=== PATIENT | female | born 1950 | race Caucasian/White ===

== ENCOUNTER 2022-07-26 17:46 | Inpatient (IN) | payer MEDICARE ==
[~2022-07-26] VITALS: Ht 157.5 cm; Wt 67.1 kg
--- NOTE | 2022-07-26 17:51 | NUR ---
at bedside for evaluation.
[2022-07-26] MEDS ORDERED: FENO54TA PO (18:11)
[2022-07-26] MEDS ORDERED: ATOR80TA PO (18:11)
[2022-07-26] MEDS ORDERED: ASPI81TA31 PO (18:11)
[2022-07-26] MEDS ORDERED: EMPA25TA PO (18:13)
[2022-07-26] MEDS ORDERED: MODA200T44 PO (18:13)
[2022-07-26] MEDS ORDERED: TRAZ-257 PO (18:13)
[2022-07-26] MEDS ORDERED: INSU100V7 SUBCUT (18:17)
[2022-07-26] MEDS ORDERED: ANAS1TAB8 PO (18:17)
[2022-07-26] MEDS ORDERED: [UNRECOGNIZED DRUG - CODE] PO (18:17)
[2022-07-26] MEDS ORDERED: LISI20TA30 PO (18:19)
[2022-07-26] MEDS ORDERED: DENO60DI SUBCUT (18:19)
[2022-07-26] MEDS ORDERED: HYDR50TA62 PO (18:22)
[2022-07-26] MEDS ORDERED: LIRA0.6P SQ (18:22)
--- NOTE | 2022-07-26 18:25 | NUR ---
Gave report to HELEN Barrett
[2022-07-26] MEDS ORDERED: ESCI-9 PO (18:27)
[2022-07-26] MEDS ORDERED: GLUC1VIA4 IM (18:27)
[2022-07-26] MEDS ORDERED: DIAZ2TAB3 PO (18:27)
[2022-07-26] MEDS ORDERED: BUSP5TAB3 PO (18:29)
[2022-07-26] MEDS ORDERED: MELA3TAB41 PO (18:29)
[2022-07-26] MEDS ORDERED: RISP2TAB85 PO (18:29)
--- NOTE | 2022-07-26 18:30 | NUR ---
Patient to go to room 141A
[2022-07-26] MEDS ORDERED: INSU100V39 (18:31)
--- NOTE | 2022-07-26 18:50 | NUR ---
Called Aidan from [facility] for pt in rm 3, per Dr. Claros, pt needs to be in 5150 hold. Aidan will come at around 2030. notified.
--- NOTE | 2022-07-26 20:38 | NUR ---
Report given to Declan [facility].
[2022-07-26 21:30] VITALS: BP 122/68
[2022-07-26] MEDS ORDERED: ACETAMINOPHEN 325 MG TABLET PO PRN (22:00)
[2022-07-26] MEDS ORDERED: BLOOD SUGAR DIAGNOSTIC 1 EACH STRIP VI ONE (22:00)
[2022-07-26] MEDS ORDERED: MAGNESIUM HYDROXIDE 30 ML LIQUID UDC PO PRN (22:00)
[2022-07-26] MEDS ORDERED: MAG HYDROX/AL HYDROX/SIMETH 30 ML LIQUID UDC PO PRN (22:00)
[2022-07-26] MEDS: LORAZEPAM 1 MG TABLET PO PRN (22:40)
[2022-07-26] MEDS: TEMAZEPAM 7.5 MG CAPSULE PO PRN (23:42)
[2022-07-27 00:36] VITALS: BP 122/68
--- NOTE | 2022-07-27 06:44 | NUR ---
GPS Nursing Admission Note: Received 72 y/o female on a 5150 hold, for GS and DTS, brought to the MHU via ER staff on WC. Upon face to face assessment, patient was unkept, disheveled, and malodorous. Pt came from home in [facility] after a weeks stay in [facility]. Pt admitted herself for psychiatric evaluation d/t feeling as though she cannot take care of herself. Patient's care-member service specialist left out of town for 1-month. Pt stated that she relies on her care-member service specialist a lot for things such as groceries, medication mgt, transportation, emotional support and companionship. Pt is AOx3, self-ambulatory, self-care, calm, and cooperative with nursing care. Pt displayed with some anxiety and depression. Pt stated that she still has vague thoughts of SI, but no HI. Pt stated her method of suicide would be via overdosing on medications. Pt is contracted for safety, and safety measures carried out. Pt's advisement was explained and placed into her rights handbook at her bedside. Briefing of the unit and its rules explained. Pt verbalzied understanding. Patient will be followed by Michael.
[2022-07-27 08:46] VITALS: BP 101/55
[2022-07-27] MEDS ORDERED: DEXTROSE 50% 50 ML DISP.SYRIN IV PRN (10:45)
[2022-07-27] MEDS: risperiDONE 0.5 MG TABLET PO SCH (11:52)
[2022-07-27] MEDS: BLOOD SUGAR DIAGNOSTIC 1 EACH STRIP VI SCH ×3 (12:18→21:25)
[2022-07-27] MEDS: INSULIN REGULAR, HUMAN 300 UNIT/3 ML VIAL SQ PRN ×3 (12:19→21:19)
[2022-07-27] MEDS: busPIRone 5 MG TABLET PO SCH ×2 (12:22→16:42)
[2022-07-27 16:40] VITALS: BP 109/68
--- NOTE | 2022-07-27 18:20 | NUR ---
Patient is alert and oriented x3, isolative withdrawn with min. assisted with other peers, compliant with all medication and care. encouraged to verbalizer feelings and to attend in group activity .on glucose monitoring will continue close monitoring.
[2022-07-27 20:06] VITALS: BP 109/74
[2022-07-27] MEDS ORDERED: risperiDONE 1 MG TABLET PO SCH (21:00)
[2022-07-27] MEDS: ATORVASTATIN 40 MG TABLET PO SCH (21:04)
[2022-07-27] MEDS: LORAZEPAM 1 MG TABLET PO PRN (21:05)
[2022-07-27] MEDS: TRAZODONE 50 MG TABLET PO SCH (21:05)
[2022-07-27] MEDS: INSULIN GLARGINE,HUM 300 UNITS/3 ML CARTRIDGE SQ SCH (21:24)
[2022-07-28] MEDS: BLOOD SUGAR DIAGNOSTIC 1 EACH STRIP VI SCH ×4 (06:21→21:20)
[2022-07-28 07:36] LABS: HEMATOCRIT 37.9 % (31.2-41.9); MEAN CORPUSCULAR HEMOGLOBIN 30.1 uug (24.7-32.8); MEAN CORPUSCULAR VOLUME 91.1 fL (75.5-95.3); PLATELET COUNT (AUTO) 170 K/uL (179-408)
[2022-07-28 07:49] LABS: CREATININE 0.6 mg/dL (0.6-1.3); MAGNESIUM 1.9 mg/dL (1.8-2.4); PHOSPHOROUS 3.6 mg/dL (2.5-4.9); POTASSIUM 3.9 mmol/L (3.5-5.1)
[2022-07-28 08:11] VITALS: BP 100/55
[2022-07-28] MEDS: FLUOXETINE HCL 20 MG CAPSULE PO SCH (08:59)
[2022-07-28] MEDS: busPIRone 5 MG TABLET PO SCH ×3 (08:59→16:49)
[2022-07-28] MEDS: risperiDONE 0.5 MG TABLET PO SCH ×2 (08:59→21:03)
[2022-07-28] MEDS: ASPIRIN 81 MG TAB.CHEW PO SCH (08:59)
[2022-07-28] MEDS: FENOFIBRATE NANOCRYSTALLIZED 48 MG TABLET PO SCH (09:00)
[2022-07-28] MEDS: LISINOPRIL 20 MG TABLET PO SCH (09:00)
[2022-07-28] MEDS ORDERED: Empagliflozin (Jardiance) 25 MG) PO SCH (09:00)
[2022-07-28] MEDS: ANASTROZOLE 1 MG TABLET PO SCH (09:00)
[2022-07-28] MEDS: HYDROCHLOROTHIAZIDE 12.5 MG CAPSULE PO SCH (09:00)
[2022-07-28] MEDS: INSULIN REGULAR, HUMAN 300 UNIT/3 ML VIAL SQ PRN ×4 (09:11→21:20)
--- NOTE | 2022-07-28 12:05 | NUR ---
KRISTIAN Initial Discharge Note: Pt currently resides at home alone located at [address] [place] [address] ([phone]). Pt reported she does not have any family contact and she is self-responsible. Pt is agreeable to assistance by the psychiatrist and this SW for temporarily placement in a longterm facility prior to returning to her home. SW will continue to work with pt and MD to ensure a safe and proper discharge plan.
--- NOTE | 2022-07-28 12:09 | NUR ---
Firearms Report: Frame Changer completed and submitted a [employer] firearms report for 5150 a danger to herself. A copy of report has been placed in patient chart.
[2022-07-28] MEDS: EMPAGLIFLOZIN 25 MG TABLET PO SCH (12:48)
--- NOTE | 2022-07-28 13:03 | NUR ---
Patient blood glucose is 204, 4 units of regular insulin given per sliding scale.
--- NOTE | 2022-07-28 14:19 | NUR ---
Received patient sleeping in her room. Patient is isolative, depressed, withdrawn, not engage in verbal conversations, compliant with medications, and cooperative with nursing care. Patient denies SI. Patient A/O X 3 to person, place, situation. Patient is encourage to verbalize feelings. Fall and safety precautions implemented.
[2022-07-28 15:58] VITALS: BP 98/51
[2022-07-28 19:47] VITALS: BP 111/78
[2022-07-28] MEDS: LORAZEPAM 1 MG TABLET PO PRN (21:03)
[2022-07-28] MEDS: ATORVASTATIN 40 MG TABLET PO SCH (21:03)
[2022-07-28] MEDS: TRAZODONE 50 MG TABLET PO SCH (21:03)
[2022-07-28] MEDS: INSULIN GLARGINE,HUM 300 UNITS/3 ML CARTRIDGE SQ SCH (21:18)
[2022-07-29] MEDS: TEMAZEPAM 7.5 MG CAPSULE PO PRN ×2 (01:16→23:03)
--- NOTE | 2022-07-29 05:34 | NUR ---
Pt continues to be overall compliant with POC. Less anxious and depressed, pt initiates interaction, AOx3, responds well to medications, self ambulatory, self care. BS findings still above normal range. Stressed the importance of making better food choices, and having more control of what, when, and amount of food she is consuming daily. Pt verbalized understanding.
[2022-07-29] MEDS: BLOOD SUGAR DIAGNOSTIC 1 EACH STRIP VI SCH ×4 (06:21→20:08)
[2022-07-29 07:30] VITALS: BP 103/64
--- NOTE | 2022-07-29 07:41 | NUR ---
patient in her room lying in bed at this time with S/S of discomfort noted, denies pain or discomfort. Will continue to monitor.
[2022-07-29] MEDS: INSULIN REGULAR, HUMAN 300 UNIT/3 ML VIAL SQ PRN ×4 (08:01→20:11)
[2022-07-29] MEDS: ASPIRIN 81 MG TAB.CHEW PO SCH (08:13)
[2022-07-29] MEDS: busPIRone 5 MG TABLET PO SCH ×3 (08:13→17:22)
[2022-07-29] MEDS: LISINOPRIL 20 MG TABLET PO SCH (08:13)
[2022-07-29] MEDS: HYDROCHLOROTHIAZIDE 12.5 MG CAPSULE PO SCH (08:14)
[2022-07-29] MEDS: EMPAGLIFLOZIN 25 MG TABLET PO SCH (08:14)
[2022-07-29] MEDS: FENOFIBRATE NANOCRYSTALLIZED 48 MG TABLET PO SCH (08:15)
[2022-07-29] MEDS: ANASTROZOLE 1 MG TABLET PO SCH (08:15)
[2022-07-29] MEDS: FLUOXETINE HCL 20 MG CAPSULE PO SCH (08:16)
[2022-07-29] MEDS: risperiDONE 0.5 MG TABLET PO SCH ×2 (08:17→20:17)
[2022-07-29 16:00] VITALS: BP 91/54
--- NOTE | 2022-07-29 17:43 | NUR ---
Patient up and about, participating with self-care, patient attends selective groups today, and smiling , stated feels better, Denies SI/HI/VH/AH. or discomforts.
[2022-07-29] MEDS: INSULIN GLARGINE,HUM 300 UNITS/3 ML CARTRIDGE SQ SCH (20:11)
[2022-07-29] MEDS: TRAZODONE 50 MG TABLET PO SCH (20:17)
[2022-07-29] MEDS: ATORVASTATIN 40 MG TABLET PO SCH (20:18)
--- NOTE | 2022-07-29 21:21 | NUR ---
GPS: Pt.is med.compliant. Denies SI at this time. Anxious at times. Re-assured prn. Blood sugar checks continues. Explained importance of adhering to diet prescribed. Safety emphasized.
[2022-07-29 21:55] VITALS: BP 106/73
[2022-07-30] MEDS: BLOOD SUGAR DIAGNOSTIC 1 EACH STRIP VI SCH ×4 (06:08→20:46)
[2022-07-30] MEDS: INSULIN REGULAR, HUMAN 300 UNIT/3 ML VIAL SQ PRN ×4 (07:59→20:53)
[2022-07-30 08:00] VITALS: BP 103/59
[2022-07-30] MEDS: LISINOPRIL 20 MG TABLET PO SCH (09:00)
[2022-07-30] MEDS: ASPIRIN 81 MG TAB.CHEW PO SCH (09:04)
[2022-07-30] MEDS: busPIRone 5 MG TABLET PO SCH ×3 (09:05→17:23)
[2022-07-30] MEDS: risperiDONE 0.5 MG TABLET PO SCH ×2 (09:06→20:21)
[2022-07-30] MEDS: ANASTROZOLE 1 MG TABLET PO SCH (09:07)
[2022-07-30] MEDS: FENOFIBRATE NANOCRYSTALLIZED 48 MG TABLET PO SCH (09:08)
[2022-07-30] MEDS: EMPAGLIFLOZIN 25 MG TABLET PO SCH (09:09)
[2022-07-30] MEDS: HYDROCHLOROTHIAZIDE 12.5 MG CAPSULE PO SCH (09:10)
[2022-07-30] MEDS: FLUOXETINE HCL 20 MG CAPSULE PO SCH (09:16)
--- NOTE | 2022-07-30 10:52 | NUR ---
Patient had court hearing today, Business Rules Analyst Mandeep Banerjee gave 14 Day hold probable cause for GD.
--- NOTE | 2022-07-30 13:45 | NUR ---
Nursing- Stayed in her room , in bed most of the morning, encouraged to attend her group therapy , claimed too tired , compliant with her routine medications , redirectable, making her simple needs known , requesting to take provigil , claimed she takes it daily at home
--- NOTE | 2022-07-30 15:22 | NUR ---
KRISTIAN Discharge Update: KRISTIAN spoke with pt's therapist, Carola Spencerzano from pt's [facility] in [facility]. Carola informed this senior mortgage underwriter that the pt has been a part of their program for many years and they are very familiar with her case. Carola stated pt has a psychiatirst, Dr. Boykin, a primary care physician she follows with, and a bilingual case manager, Wong Narayan in the program. Carola requested for pt to discharge to a facility where they can continue her care. [facility]IAN [facility] to be close to her home. Pt currently resides at home. However, Carola agrees with the Doctor and the pt that she is not ready to provide self-care at this time. Carola is agreeable with this option and KRISTIAN stated she will discuss this plan with the psychiatrist on this unit, Dr. Menchaca. Carola was grateful for the help. KRISTIAN will continue to work with the pt, Dr. Menchaca and Carola to ensure a safe and proper discharge plan.
[2022-07-30 16:00] VITALS: BP 117/70
[2022-07-30 20:00] VITALS: BP 98/63
[2022-07-30] MEDS: ATORVASTATIN 40 MG TABLET PO SCH (20:20)
[2022-07-30] MEDS: TRAZODONE 50 MG TABLET PO SCH (20:20)
[2022-07-30] MEDS: INSULIN GLARGINE,HUM 300 UNITS/3 ML CARTRIDGE SQ SCH (21:02)
[2022-07-30] MEDS: TEMAZEPAM 7.5 MG CAPSULE PO PRN (23:03)
[2022-07-31] MEDS: BLOOD SUGAR DIAGNOSTIC 1 EACH STRIP VI SCH ×4 (06:18→20:17)
--- NOTE | 2022-07-31 06:45 | NUR ---
GPS: Pt.slept 6.15 last night. Denies SI. Re-assured prn. Blood sugar checks continues. Safe environment provided.
[2022-07-31 08:00] VITALS: BP 90/50
[2022-07-31] MEDS: INSULIN REGULAR, HUMAN 300 UNIT/3 ML VIAL SQ PRN ×4 (08:06→20:31)
[2022-07-31] MEDS: ASPIRIN 81 MG TAB.CHEW PO SCH (08:26)
[2022-07-31] MEDS: risperiDONE 0.5 MG TABLET PO SCH ×2 (08:27→20:18)
[2022-07-31] MEDS: busPIRone 5 MG TABLET PO SCH ×3 (08:28→17:20)
[2022-07-31] MEDS: FLUOXETINE HCL 20 MG CAPSULE PO SCH (08:28)
[2022-07-31] MEDS: EMPAGLIFLOZIN 25 MG TABLET PO SCH (08:29)
[2022-07-31] MEDS: FENOFIBRATE NANOCRYSTALLIZED 48 MG TABLET PO SCH (08:29)
[2022-07-31] MEDS: HYDROCHLOROTHIAZIDE 12.5 MG CAPSULE PO SCH (08:30)
[2022-07-31] MEDS: LISINOPRIL 20 MG TABLET PO SCH (08:32)
[2022-07-31] MEDS: MODAFINIL 100 MG TABLET PO SCH (08:36)
[2022-07-31] MEDS: ANASTROZOLE 1 MG TABLET PO SCH (08:37)
[2022-07-31] MEDS: GLUCERNA SHAKE 237 ML CAN PO SCH (11:59)
--- NOTE | 2022-07-31 16:00 | NUR ---
spoke with Dr. Barrios regarding patient has multiple drug allergies ,per Dr. Sophie estrada to give Zyprexa IM. Addendum: 07/31/22 at 1646 by ENZO MCGEE RN wrong patient.
[2022-07-31 16:16] VITALS: BP 92/53
[2022-07-31 20:14] VITALS: BP 108/70
[2022-07-31] MEDS: TRAZODONE 50 MG TABLET PO SCH (20:18)
[2022-07-31] MEDS: ATORVASTATIN 40 MG TABLET PO SCH (20:18)
[2022-07-31] MEDS: INSULIN GLARGINE,HUM 300 UNITS/3 ML CARTRIDGE SQ SCH (20:29)
[2022-07-31] MEDS: TEMAZEPAM 7.5 MG CAPSULE PO PRN (22:13)
[2022-08-01] MEDS: BLOOD SUGAR DIAGNOSTIC 1 EACH STRIP VI SCH ×4 (06:01→20:33)
--- NOTE | 2022-08-01 06:29 | NUR ---
GPS: Pt.slept 7 hrs.last night. Remains anxious at times. Re-assured prn. Denies wanting to harm self. Less withdrawn and goes to the day room to watch TV. Needs attended. Blood sugar monitoring continues.
[2022-08-01 07:53] VITALS: BP 94/58
[2022-08-01] MEDS: FLUOXETINE HCL 20 MG CAPSULE PO SCH (08:40)
[2022-08-01] MEDS: MODAFINIL 100 MG TABLET PO SCH (08:40)
[2022-08-01] MEDS: risperiDONE 0.5 MG TABLET PO SCH ×2 (08:40→20:40)
[2022-08-01] MEDS: busPIRone 5 MG TABLET PO SCH ×3 (08:40→16:23)
[2022-08-01] MEDS: ASPIRIN 81 MG TAB.CHEW PO SCH (08:40)
[2022-08-01] MEDS: LISINOPRIL 20 MG TABLET PO SCH (08:42)
[2022-08-01] MEDS: HYDROCHLOROTHIAZIDE 12.5 MG CAPSULE PO SCH (08:42)
[2022-08-01] MEDS: FENOFIBRATE NANOCRYSTALLIZED 48 MG TABLET PO SCH (08:42)
[2022-08-01] MEDS: GLUCERNA SHAKE 237 ML CAN PO SCH (08:43)
[2022-08-01] MEDS: EMPAGLIFLOZIN 25 MG TABLET PO SCH (08:43)
[2022-08-01] MEDS: ANASTROZOLE 1 MG TABLET PO SCH (08:45)
[2022-08-01] MEDS: INSULIN REGULAR, HUMAN 300 UNIT/3 ML VIAL SQ PRN ×4 (08:45→20:43)
[2022-08-01 12:25] LABS: *BILIRUBIN,URIN NEGATIVE (NEGATIVE); *BLOOD, URINE NEGATIVE (NEGATIVE); *CLARITY,URINE CLEAR (CLEAR); *COLOR,URINE YELLOW (YELLOW); *KETONES,URINE NEGATIVE (NEGATIVE); *UROBILINOGEN,URINE 0.2 E.U./dl (NORMAL); LEUKOCYTE ESTERASE ,URINE NEGATIVE (NEGATIVE); NITRITE, URINE NEGATIVE (NEGATIVE); PH,URINE 5.5 (5.0-8.0)
[2022-08-01 13:05] LABS: UGLUCOSE 3+ (NEGATIVE)
[2022-08-01 13:19] LABS: WBC,URINE 0-3 /HPF (0-3)
[2022-08-01 13:22] LABS: BACTERIA,URINE FEW /HPF (NONE SEEN); SQUAMOUS EPITHELIAL CELL,UR FEW /HPF (NONE SEEN)
--- NOTE | 2022-08-01 14:52 | NUR ---
GPS: Nursing Notes: Destructive Behavior To Self: Patient is awake and responding to her name, compliant with her medications, cooperative with nursing care, isolative and withdrawn in her room, depressed mood and blunted affect, needs prompting to participate in therapeutic groups, minimal interactions with peers, unable to formulate a viable plan for self care, unkempt appearance, low energy level, poor grooming, verbally pérez for safety, continue to monitor for safety, continue with treatment plan.
[2022-08-01 16:08] VITALS: BP 142/92
[2022-08-01 20:00] VITALS: BP 124/78
[2022-08-01] MEDS: TRAZODONE 50 MG TABLET PO SCH (20:39)
[2022-08-01] MEDS: ATORVASTATIN 40 MG TABLET PO SCH (20:39)
[2022-08-01] MEDS: INSULIN GLARGINE,HUM 300 UNITS/3 ML CARTRIDGE SQ SCH (20:55)
[2022-08-01] MEDS: TEMAZEPAM 7.5 MG CAPSULE PO PRN (22:57)
--- NOTE | 2022-08-02 05:11 | NUR ---
Patient is awake In dinning room interacting wit peers, compliant with her medications, cooperative with nursing care, unable to formulate a viable plan for self care, unkempt appearance, low energy level, poor grooming, verbally pérez for safety, continue to monitor for safety, continue with treatment plan.
[2022-08-02] MEDS: BLOOD SUGAR DIAGNOSTIC 1 EACH STRIP VI SCH ×4 (06:12→20:26)
[2022-08-02 08:39] VITALS: BP 108/61
[2022-08-02] MEDS: FLUOXETINE HCL 20 MG CAPSULE PO SCH (08:45)
[2022-08-02] MEDS: HYDROCHLOROTHIAZIDE 12.5 MG CAPSULE PO SCH (08:45)
[2022-08-02] MEDS: ASPIRIN 81 MG TAB.CHEW PO SCH (08:45)
[2022-08-02] MEDS: MODAFINIL 100 MG TABLET PO SCH (08:47)
[2022-08-02] MEDS: FENOFIBRATE NANOCRYSTALLIZED 48 MG TABLET PO SCH (08:47)
[2022-08-02] MEDS: ANASTROZOLE 1 MG TABLET PO SCH (08:47)
[2022-08-02] MEDS: risperiDONE 0.5 MG TABLET PO SCH ×2 (08:47→20:26)
[2022-08-02] MEDS: EMPAGLIFLOZIN 25 MG TABLET PO SCH (08:48)
[2022-08-02] MEDS: GLUCERNA SHAKE 237 ML CAN PO SCH (08:48)
[2022-08-02] MEDS: LISINOPRIL 20 MG TABLET PO SCH (08:48)
[2022-08-02] MEDS: busPIRone 5 MG TABLET PO SCH ×3 (08:48→16:22)
[2022-08-02] MEDS: INSULIN REGULAR, HUMAN 300 UNIT/3 ML VIAL SQ PRN ×3 (08:53→20:28)
--- NOTE | 2022-08-02 12:51 | NUR ---
GPS: Nursing Notes: Destructive Behavior To Self: Patient is awake and responding to her name, compliant with her medications, depressed mood and withdrawn affect, isolative and withdrawn in her room, did not participate in therapeutic groups, low energy level, unkempt appearance, poor grooming, unable to formulate a viable plan for self care, verbally péerz for safety, denies SI, continue to monitor for safety, continue with treatment plan.
[2022-08-02 16:05] VITALS: BP 110/66
[2022-08-02 20:10] VITALS: BP 126/61
[2022-08-02] MEDS: TRAZODONE 50 MG TABLET PO SCH (20:25)
[2022-08-02] MEDS: ATORVASTATIN 40 MG TABLET PO SCH (20:25)
[2022-08-02] MEDS: INSULIN GLARGINE,HUM 300 UNITS/3 ML CARTRIDGE SQ SCH (20:27)
[2022-08-02] MEDS: TEMAZEPAM 7.5 MG CAPSULE PO PRN (22:27)
[2022-08-03] MEDS: BLOOD SUGAR DIAGNOSTIC 1 EACH STRIP VI SCH ×4 (06:08→20:16)
[2022-08-03] MEDS: FLUOXETINE HCL 20 MG CAPSULE PO SCH (08:29)
[2022-08-03] MEDS: MODAFINIL 100 MG TABLET PO SCH (08:30)
[2022-08-03] MEDS: LISINOPRIL 20 MG TABLET PO SCH (08:30)
[2022-08-03] MEDS: busPIRone 5 MG TABLET PO SCH ×3 (08:30→17:19)
[2022-08-03] MEDS: HYDROCHLOROTHIAZIDE 12.5 MG CAPSULE PO SCH (08:30)
[2022-08-03] MEDS: FENOFIBRATE NANOCRYSTALLIZED 48 MG TABLET PO SCH (08:30)
[2022-08-03] MEDS: risperiDONE 0.5 MG TABLET PO SCH ×2 (08:30→20:20)
[2022-08-03 08:31] VITALS: BP 125/71
[2022-08-03] MEDS: ANASTROZOLE 1 MG TABLET PO SCH (08:31)
[2022-08-03] MEDS: EMPAGLIFLOZIN 25 MG TABLET PO SCH (08:31)
[2022-08-03] MEDS: ASPIRIN 81 MG TAB.CHEW PO SCH (08:31)
[2022-08-03] MEDS: GLUCERNA SHAKE 237 ML CAN PO SCH (08:32)
[2022-08-03] MEDS: INSULIN REGULAR, HUMAN 300 UNIT/3 ML VIAL SQ PRN ×3 (08:34→20:21)
--- NOTE | 2022-08-03 14:16 | NUR ---
SW Discharge Update: Pt is accepted to [facility] long term [address] [address]) [phone] per Mabel manning. pt and MD are aware.
--- NOTE | 2022-08-03 15:10 | NUR ---
GPS: Nursing Notes: Destructive Behavior To Self: Patient is awake and responding to her name, isolative and withdrawn in her room in the morning, but in the afternoon, participated in therapeutic groups, following staff directions, cooperative with nursing care, depressed mood and withdrawn affect, unable to formulate a viable plan for self care, unkempt appearance, denies SI, continue to monitor for safety, continue with treatment plan.
[2022-08-03 16:21] VITALS: BP 111/78
[2022-08-03 19:51] VITALS: BP 108/74
[2022-08-03] MEDS: INSULIN GLARGINE,HUM 300 UNITS/3 ML CARTRIDGE SQ SCH (20:18)
[2022-08-03] MEDS: TRAZODONE 50 MG TABLET PO SCH (20:22)
[2022-08-03] MEDS: ATORVASTATIN 40 MG TABLET PO SCH (20:22)
[2022-08-03] MEDS: TEMAZEPAM 7.5 MG CAPSULE PO PRN (23:36)
--- NOTE | 2022-08-04 03:58 | NUR ---
This automobile service writer had a meaningful conversation with the patient earlier in the shift. The patient talked about having episodes of severe anxiety r/t abandonment issues stemming back to childhood. The patient has been denying active SI, with this automobile service writer, while in the hospital and made a verbal contract for safety. The patient does have some good insight of her behavior, but is unable to formulate any plan or coping mechanisms, for when the anxiety begins. It was made clear by the patient that she does not like to be " Alone ". Reassurance provided and possible coping techniques discussed.Safety Stratiges are in place. Continuing to monitor the patient for anxiety , SI and depression.
[2022-08-04] MEDS: BLOOD SUGAR DIAGNOSTIC 1 EACH STRIP VI SCH ×4 (06:08→20:01)
[2022-08-04 07:30] VITALS: BP 100/58
[2022-08-04] MEDS: ANASTROZOLE 1 MG TABLET PO SCH (08:44)
[2022-08-04] MEDS: FENOFIBRATE NANOCRYSTALLIZED 48 MG TABLET PO SCH (08:45)
[2022-08-04] MEDS: MODAFINIL 100 MG TABLET PO SCH (08:45)
[2022-08-04] MEDS: INSULIN REGULAR, HUMAN 300 UNIT/3 ML VIAL SQ PRN ×3 (08:45→20:04)
[2022-08-04] MEDS: risperiDONE 0.5 MG TABLET PO SCH ×2 (08:46→20:20)
[2022-08-04] MEDS: ASPIRIN 81 MG TAB.CHEW PO SCH (08:46)
[2022-08-04] MEDS: FLUOXETINE HCL 20 MG CAPSULE PO SCH (08:46)
[2022-08-04] MEDS: HYDROCHLOROTHIAZIDE 12.5 MG CAPSULE PO SCH (08:46)
[2022-08-04] MEDS: LISINOPRIL 20 MG TABLET PO SCH (08:46)
[2022-08-04] MEDS: busPIRone 5 MG TABLET PO SCH ×3 (08:46→16:32)
[2022-08-04] MEDS: EMPAGLIFLOZIN 25 MG TABLET PO SCH (08:47)
[2022-08-04] MEDS: GLUCERNA SHAKE 237 ML CAN PO SCH (08:47)
--- NOTE | 2022-08-04 12:07 | NUR ---
GPS: Nursing Notes: Destructive Behavior To Self: Patient is awake and responding to her name, withdrawn in her room, isolative, depressed mood and anxious affect, no interactions with peers, unkempt appearance, needs prompting to participate in therapeutic groups, interactive when participating in therapeutic groups, unable to formulate a viable plan for self care, continue to monitor for safety, continue with treatment plan.
[2022-08-04 15:39] VITALS: BP 101/52
--- NOTE | 2022-08-04 16:28 | NUR ---
SW Discharge Update: SW spoke with caser up, Wong Narayan from pt's Older Adult [facility] in [facility] and discussed pt's discharge plan for Wednesday to [facility] long-term [facility] located at [address] [place] [address] via facility transportation. Wong stated she is working on ensuring pt's apartment is kept well during her time at the facility. Pt will follow-up with her psych, Dr. Boykin and therapist, Carola.
[2022-08-04] MEDS: INSULIN GLARGINE,HUM 300 UNITS/3 ML CARTRIDGE SQ SCH (20:04)
[2022-08-04 20:05] VITALS: BP 113/69
[2022-08-04] MEDS: TRAZODONE 50 MG TABLET PO SCH (20:20)
[2022-08-04] MEDS: ATORVASTATIN 40 MG TABLET PO SCH (20:20)
[2022-08-04] MEDS: TEMAZEPAM 7.5 MG CAPSULE PO PRN (23:08)
[2022-08-05] MEDS: BLOOD SUGAR DIAGNOSTIC 1 EACH STRIP VI SCH ×4 (06:25→20:25)
--- NOTE | 2022-08-05 06:36 | NUR ---
GPS: Pt.slept 6.30 last night. Less depressed and anxious when asked. Denies SI. Re-assured prn. Blood sugar this am is 181mg/dl. Needs attended.
[2022-08-05 08:00] VITALS: BP 90/49
[2022-08-05] MEDS: MODAFINIL 100 MG TABLET PO SCH (08:36)
[2022-08-05] MEDS: FLUOXETINE HCL 20 MG CAPSULE PO SCH (08:36)
[2022-08-05] MEDS: LISINOPRIL 20 MG TABLET PO SCH (08:38)
[2022-08-05] MEDS: busPIRone 5 MG TABLET PO SCH ×3 (08:39→17:14)
[2022-08-05] MEDS: risperiDONE 0.5 MG TABLET PO SCH ×2 (08:39→20:34)
[2022-08-05] MEDS: ASPIRIN 81 MG TAB.CHEW PO SCH (08:39)
[2022-08-05] MEDS: INSULIN REGULAR, HUMAN 300 UNIT/3 ML VIAL SQ PRN ×4 (08:42→20:27)
[2022-08-05] MEDS: FENOFIBRATE NANOCRYSTALLIZED 48 MG TABLET PO SCH (08:44)
[2022-08-05] MEDS: EMPAGLIFLOZIN 25 MG TABLET PO SCH (08:44)
[2022-08-05] MEDS: HYDROCHLOROTHIAZIDE 12.5 MG CAPSULE PO SCH (08:45)
[2022-08-05] MEDS: ANASTROZOLE 1 MG TABLET PO SCH (08:46)
[2022-08-05] MEDS: GLUCERNA SHAKE 237 ML CAN PO SCH (09:06)
[2022-08-05 11:59] VITALS: BP 136/77
[2022-08-05 15:04] VITALS: BP 114/68
--- NOTE | 2022-08-05 15:17 | NUR ---
Received Pt in room responding to her name. Pt is less depressed and anxious. pt attended group and interacted with peers. Pt took a shower with minimal assistance.pt is compliant with medications and nursing care. pt denies SI at this time.Continue to monitor for safety continue with treatment plan.
[2022-08-05 20:09] VITALS: BP 106/69
[2022-08-05] MEDS: INSULIN GLARGINE,HUM 300 UNITS/3 ML CARTRIDGE SQ SCH (20:31)
[2022-08-05] MEDS: ATORVASTATIN 40 MG TABLET PO SCH (20:34)
[2022-08-05] MEDS: TRAZODONE 50 MG TABLET PO SCH (20:34)
[2022-08-05] MEDS: TEMAZEPAM 7.5 MG CAPSULE PO PRN (22:09)
--- NOTE | 2022-08-06 06:16 | NUR ---
GPS: Pt.is less depressed,anxious and denies wanting to hurt self. Med.compliant. Re-assured prn. Safe environment provided. Blood sugar this am is 174mg/dl. Slept for 6.30 last night. Will continue to monitor.
[2022-08-06] MEDS: BLOOD SUGAR DIAGNOSTIC 1 EACH STRIP VI SCH ×4 (06:33→20:56)
[2022-08-06 08:00] VITALS: BP_SYST 100; BP_SYST 103; BP_DIAS 59; BP_DIAS 61
[2022-08-06] MEDS: FLUOXETINE HCL 20 MG CAPSULE PO SCH (09:21)
[2022-08-06] MEDS: MODAFINIL 100 MG TABLET PO SCH (09:22)
[2022-08-06] MEDS: LISINOPRIL 20 MG TABLET PO SCH (09:23)
[2022-08-06] MEDS: ASPIRIN 81 MG TAB.CHEW PO SCH (09:23)
[2022-08-06] MEDS: EMPAGLIFLOZIN 25 MG TABLET PO SCH (09:24)
[2022-08-06] MEDS: busPIRone 5 MG TABLET PO SCH ×3 (09:24→17:00)
[2022-08-06] MEDS: ANASTROZOLE 1 MG TABLET PO SCH (09:26)
[2022-08-06] MEDS: GLUCERNA SHAKE 237 ML CAN PO SCH (09:27)
[2022-08-06] MEDS: FENOFIBRATE NANOCRYSTALLIZED 48 MG TABLET PO SCH (09:27)
[2022-08-06] MEDS: INSULIN REGULAR, HUMAN 300 UNIT/3 ML VIAL SQ PRN ×5 (09:34→21:01)
[2022-08-06] MEDS: risperiDONE 0.5 MG TABLET PO SCH ×2 (09:39→20:57)
[2022-08-06] MEDS: HYDROCHLOROTHIAZIDE 12.5 MG CAPSULE PO SCH (09:39)
--- NOTE | 2022-08-06 16:00 | NUR ---
Nursing- Patient stayed in the activity room most of the afternoon, participated in her group activity. Discharge planning in progress arranged for tomorrow to SNF , patient was well informed.
[2022-08-06] MEDS: TRAZODONE 50 MG TABLET PO SCH (20:57)
[2022-08-06] MEDS: ATORVASTATIN 40 MG TABLET PO SCH (20:57)
[2022-08-06] MEDS: INSULIN GLARGINE,HUM 300 UNITS/3 ML CARTRIDGE SQ SCH (21:00)
[2022-08-06 21:22] VITALS: BP 126/77
[2022-08-06] MEDS: TEMAZEPAM 7.5 MG CAPSULE PO PRN (23:03)
[2022-08-07] MEDS: BLOOD SUGAR DIAGNOSTIC 1 EACH STRIP VI SCH ×2 (06:44→11:46)
[2022-08-07 07:40] VITALS: BP 76/21
[2022-08-07] MEDS: INSULIN REGULAR, HUMAN 300 UNIT/3 ML VIAL SQ PRN ×2 (08:34→12:15)
[2022-08-07] MEDS: ANASTROZOLE 1 MG TABLET PO SCH (08:39)
[2022-08-07] MEDS: EMPAGLIFLOZIN 25 MG TABLET PO SCH (08:40)
[2022-08-07] MEDS: FENOFIBRATE NANOCRYSTALLIZED 48 MG TABLET PO SCH (08:40)
[2022-08-07] MEDS: ASPIRIN 81 MG TAB.CHEW PO SCH (08:40)
[2022-08-07] MEDS: MODAFINIL 100 MG TABLET PO SCH (08:41)
[2022-08-07] MEDS: busPIRone 5 MG TABLET PO SCH ×2 (08:41→12:11)
[2022-08-07] MEDS: risperiDONE 0.5 MG TABLET PO SCH (08:42)
[2022-08-07] MEDS: FLUOXETINE HCL 20 MG CAPSULE PO SCH (08:42)
[2022-08-07] MEDS: LISINOPRIL 20 MG TABLET PO SCH (08:50)
[2022-08-07] MEDS: HYDROCHLOROTHIAZIDE 12.5 MG CAPSULE PO SCH (08:51)
[2022-08-07] MEDS: GLUCERNA SHAKE 237 ML CAN PO SCH (08:51)
--- NOTE | 2022-08-07 09:12 | NUR ---
KRISTIAN Discharge Note: Pt will be discharged to [facility] group home [address] [address]) [phone] via FACILITY TRANSPORTATION at 11AM. KRISTIAN spoke with admin coordinator, Mabel at the facility who states they are ready to accept the patient today. Pt is aware and agreeable with discharge plan. Pt does not have any family contact at this time. Pt is alert and oriented x3, is unable to plan for self-care at this time. However, pt is willing to accept care at SNF. Pt denies any suicidal or homicidal ideation. Pt will follow-up at the facility with Psychiatrist, Dr. Walker and Operations Intelligence, Dr. Kelley. Pt presents with calm mood and congruent affect. PHARMACY: [facility] [address] [facility] .
--- NOTE | 2022-08-07 10:18 | NUR ---
Gps/Enzyme Chemist- Discharged planning in progress, arranged discharged by Human Resources Operations Director Dorothy to [facility] and SNF at 1100 am transportation will be provided by the facility . All belonings and valuables gathered and will be given back to patient upon discharge ,
[2022-08-07 15:44] VITALS: BP 112/79
--- NOTE | 2022-08-07 16:28 | NUR ---
Gps/Iraj GIFFORD (providing transportation) here to burr picker patient all belongings given back to patient. Discharged in good sprit , no new complaints noted
== END 2022-08-07 16:34 | DRG 885 ==
LOC: ER 17:50 → GPS 20:30
PROVIDERS: ADMIT Psychiatry & Neurology Psychosomatic Medicine; ATTEND Internal Medicine
DX: F31.9 Bipolar disorder, unspecified (principal); R45.851 Suicidal ideations; F41.9 Anxiety disorder, unspecified; E11.9 Type 2 diabetes mellitus without complications; F43.10 Post-traumatic stress disorder, unspecified; I10 Essential (primary) hypertension; R62.7 Adult failure to thrive; Z68.27 Body mass index [BMI] 27.0-27.9, adult; Y92.89 Other specified places as the place of occurrence of the external cause; C50.911 Malignant neoplasm of unspecified site of right female breast; Z79.811 Long term (current) use of aromatase inhibitors; Z90.11 Acquired absence of right breast and nipple; Z88.9 Allergy status to unspecified drugs, medicaments and biological substances; M85.80 Other specified disorders of bone density and structure, unspecified site; T45.1X5A Adverse effect of antineoplastic and immunosuppressive drugs, initial encounter; Z88.0 Allergy status to penicillin; M19.90 Unspecified osteoarthritis, unspecified site; Z79.899 Other long term (current) drug therapy; G47.33 Obstructive sleep apnea (adult) (pediatric); Z20.822 Contact with and (suspected) exposure to COVID-19; Z87.19 Personal history of other diseases of the digestive system
CPT/HCPCS: 36415; 83735; 84100; 85025; A4663; J1815